=== PATIENT | female | born 1935 | race Asian ===

== ENCOUNTER 2021-06-09 10:54 | Emergency (ER) | payer MEDICARE, OTHER ==
[~2021-06-09] VITALS: Ht 152.4 cm; Wt 45.5 kg
[2021-06-09 11:44] LABS: COVID AG,FIA SOURCE NASAL SWAB
[2021-06-09 12:08] LABS: INFLUENZA TYPE A NEGATIVE FOR TYPE A (NEGATIVE); INFLUENZA TYPE B NEGATIVE FOR TYPE B (NEGATIVE)
[2021-06-09 12:32] LABS: GLUCOMETER DEV NAME(LOC) ERT.5; GLUCOSE,POINT OF CARE 170 MG/DL (70-110)
[2021-06-09 12:48] LABS: BASOPHILS % (AUTO) 1.1 % (0.0-2.0); EOSINOPHILS % (AUTO) 0.4 % (1.0-6.0); HEMATOCRIT 35.2 % (36-46); HEMOGLOBIN 12.1 g/dL (12.0-16.0); LYMPHOCYTES # (AUTO) 1.1 K/uL (1.0-4.8); LYMPHOCYTES % (AUTO) 29.2 % (22.0-44.0); MEAN CORPUSCULAR HEMOGLOBIN 29.6 pg (26.0-34.0); MEAN CORPUSCULAR HGB CONC 34.4 G/dL (31.0-37.0); MEAN CORPUSCULAR VOLUME 86 fL (80-100); MONOCYTES # (AUTO) 0.7 K/uL (0.1-1.0); MONOCYTES % (AUTO) 18.9 % (2.0-9.0); NEUTROPHILS # (AUTO) 1.9 K/uL (1.8-7.7); NEUTROPHILS % (AUTO) 50.4 % (40.0-70.0); PLATELET COUNT (AUTO) 146 K/uL (150-450); RED BLOOD CELL COUNT(AUTO) 4.09 MIL/uL (4.00-5.20); RED CELL DISTRIBUTION WIDTH 13.5 % (11.5-14.5)
[2021-06-09 13:11] LABS: ALBUMIN 3.6 g/dL (3.4-5.0); BILIRUBIN,TOTAL 0.5 mg/dL (0.1-1.0); CALCIUM, TOTAL 9.1 mg/dL (8.8-10.5); CREATININE 1.1 mg/dL (0.60-1.30); TOTAL PROTEIN, SERUM 6.7 g/dL (6.4-8.2)
[2021-06-09 13:12] LABS: POTASSIUM 2.7 mmol/L (3.5-5.1)
[2021-06-09] MEDS ORDERED: POTASSIUM CHLORIDE 20 MEQ ER TABLET PO ONE (13:30)
[2021-06-09 13:42] VITALS: BP 130/65
== END 2021-06-09 13:56 | disposition home or self-care (01) ==
LOC: EMS 10:54
DX: U07.1 COVID-19 (principal); E11.9 Type 2 diabetes mellitus without complications; I10 Essential (primary) hypertension
CPT/HCPCS: 80053; 82962; 85025; 87804; 99283